=== PATIENT | female | born 1955 | race Caucasian/White ===

== ENCOUNTER → 2018-05-14 06:00 | Day surgery (SDC) | payer MEDICARE, OTHER ==
[~2018-05-14] VITALS: Ht 157.5 cm; Wt 72.6 kg
[~2018-05-14 06:00] MED LIST: CARBINOXAMINE MALEAT; HUMALOG 30100 UNITS/ SC; LEVOTHYROXINE125 MCG PO; LEXAPRO20 MG PO; OMEPRAZOLE40 MG PO; QUINAPRIL HCTZ; XALATAN 0.0052.5 ML EACH EYE; ZOCOR20 MG PO
[2018-05-14 06:18] LABS: HEMATOCRIT 40.7 % (36.0-48.0); HEMOGLOBIN 13.7 g/dL (12-16); MCH 29.2 pg (26.0-34.0); MCHC 33.7 g/dL (31.0-37.0); MCV 86.8 fL (80.0-100.0); MEAN PLATELET VOLUME 10.5 fL (7.4-10.4); RBC 4.69 10x6/uL (4.00-5.40); WBC 9.8 10x3/uL (4.8-10.8)
[2018-05-14 07:23] VITALS: BP 123/70; Ht 157.5 cm; Wt 72.6 kg
--- NOTE | 2018-05-14 16:12 | NUR ---
1120 ALL DC CRITERIA MET. IV REMOVED WITH CATHALON INTACT. ABLE TO URINATE. DRESSED AT BEDSIDE AND READY TO GO HOME. ALL DISCHARGE INSTRUCTIONS GIVEN. VOICES UNDERSTANDING. TAKEN OUT VIA WC AND ASSISTED TO CAR WITH SPOUSE. ADVISED TO CALL OR COME BACK IF ANY PROBLEMS.
--- NOTE | 2018-05-28 09:18 | OP ---
PATIENT NAME: YAHAIRA RODRIGUEZ MEDICAL RECORD: [id number] :51 [facility] DATE: SURGEON: NERY BARRETO DPM DATE OF OPERATION: 05/14/2018 PREOPERATIVE DIAGNOSES: 1. Rheumatoid nodule left anterior ankle as well as plantar left hallux. 2. Tailor's bunion left foot. POSTOPERATIVE DIAGNOSIS: 1. Rheumatoid nodule left anterior ankle as well as plantar left hallux. 2. Tailor's bunion left foot. 3. Additional rheumatoid nodule lateral left fifth metatarsal head. ANESTHESIA: General with local infiltrate utilizing lidocaine and Marcaine plain, approximately 10 cc around the fifth ray as well as a block around the hallux 3 cc as well as 3 cc V block on the anterior left ankle. HEMOSTASIS: Left ankle Esmarch. PREOPERATIVE DETAILS: The patient was taken to the OR and placed on the operating table in a supine position, followed by induction of general anesthesia and infiltration of local anesthetic. The left extremity was then prepped and draped in usual aseptic technique, followed by exsanguination and leaving the Esmarch on the ankle. PROCEDURE NUMBER 1: Excision of rheumatoid nodule anterior left ankle: A 15 blade was used to create a 2-cm linear incision over the dorsal aspect of the left anterior ankle. The incision was deepened down through subcutaneous tissue to the rheumatoid nodule. The nodule was freed from the surrounding tissue and resected and sent to pathology, measured approximately 4 mm in diameter. The wound was flushed. The skin was reapproximated with 4-0 Rapide in a subcuticular technique, followed by Dermabond. PROCEDURE NUMBER 2: Rheumatoid nodule excision plantar left hallux: A transverse incision was made on the plantar left hallux approximately 1 cm to 1.5 cm. The incision was deepened down to subcutaneous tissue. The nodule was very superficial in the wound, extended down to the flexor longus tendon, which was visualized in the wound. The rheumatoid nodule was freed from surrounding soft tissue and resected. It measured approximately 1.5-2 cm in diameter. It was also sent to pathology. The wound was flushed. The skin was reapproximated with 4-0 Rapide in a subcuticular technique, followed by Dermabond. PROCEDURE NUMBER 3: Tailor's bunionectomy left foot: A 15-blade was used to create a 3-cm linear incision over the dorsal aspect of the fifth ray, extended to the base of the proximal phalanx of the fifth digit. The incision was deepened down through subcutaneous tissue to the joint capsule, which was incised longitudinally. The fifth metatarsal head was then delivered. A sagittal saw was used to resect lateral 3-4 mm of the metatarsal head. At this time under palpation, it was noted that there was an additional nodule in the joint capsule lateral to the 5th metatarsal head. PROCEDURE NUMBER 4: Resection of rheumatoid nodule lateral left fifth metatarsal head: The rheumatoid nodule was isolated within the joint capsule and freed and sent to pathology for gross and micro inspection. It measured OPERATIVE REPORT [id number] YAHAIRA RODRIGUEZ approximately 8 mm in diameter. The wound was flushed. The joint capsule was repaired with 3-0 Vicryl. The subcutaneous tissue was reapproximated with 4-0 Rapide and the skin was closed with 4-0 Rapide in a subcuticular technique followed by Dermabond. Adaptic, 4 x 4, and Conform were used to dress the wounds, followed by the Justin wrap. The Esmarch was removed. The patient tolerated the procedure well and left the OR with vital signs stable and vascular status at preoperative levels. The patient was transported to recovery per anesthesia in stable condition. TRANSINT:[id number] Voice Confirmation ID: [id number] DOCUMENT ID: [id number] NERY BARRETO DPM at 0918 CC: [id number] DICTATION DATE: 05/14/18 0954 TRAIN PLANNER: 05/14/18 1121 [facility] 05/14/[address] [id number]
== END | disposition home or self-care (01) ==
LOC: D.OPS 06:00 → D.PAN 08:00 → D.OPS 08:15
PROVIDERS: Anesthesiology
DX: M06.372 Rheumatoid nodule, left ankle and foot (principal); M21.622 Bunionette of left foot; Z01.812 Encounter for preprocedural laboratory examination